=== PATIENT | female | born 1970 | race African-American/Black ===

== ENCOUNTER 2016-05-24 08:42 | Emergency (ER) | payer MEDICARE, MEDICAID ==
[2016-05-24 09:22] VITALS: BP 192/106
[2016-05-24] MEDS ORDERED: ceFAZolin 500 MG VIAL(*) 500 MG VIAL ONE (10:48)
[2016-05-24] MEDS: ceFAZolin 500 MG VIAL(*) 500 MG VIAL IM ONE (10:52)
[2016-05-24] MEDS ORDERED: ceFAZolin 1 GM VIAL(*) ONE (10:58)
--- NOTE | 2016-05-24 11:10 | UC ---
Stanley Guevara Aidan, scribed for Madhuri Rodriguez DO on 05/24/16 at 1033 . Skin Complaint HPI - HPI Summary HPI Summary: 45 y/o female presents to the Urgent Care with a complaint of acute, constant, severely painful (8/10) vaginal sores for the past 10 days. Movement and pressure aggravate the pain while Ibuprofen and Aleve slightly alleviate it. Over this past week, some of the sores have drained, refilled, and increased in size. She has not had drainage for the past 2 days, though currently, her gauze is filling up. Associates symptoms include some nausea, and chills. The patient denies any vomiting, coughing, sore throat, cp, or SOB. Hx of cystic breakouts during menstrual periods. The patient also mentions having a significant amount of stress, however, no SI/HI. - History of Current Complaint Chief Complaint: UCSkin Time Seen by Provider: 05/24/16 10:05 Stated Complaint: VAGINAL SORE Hx Obtained From: Patient Hx Last Menstrual Period: 05/05/16 ?: No Onset/Duration: Gradual Onset, Lasting Days, Still Present Skin Exposure Onset/Duration: Days Ago Timing: Constant Onset Severity: Moderate Current Severity: Moderate Pain Intensity: 7 Pain Scale Used: 0-10 Numeric Location: Other - mons pubis Character: Swelling, Pain, Redness Aggravating: Other - movement and applying pressure Alleviating: Heat, OTC Meds - Aleve and Ibuprofen Associated Signs & Symptoms: Positive: Nausea, Chills, Drainage, Tenderness. Negative: Negative - dizziness, Vomiting, Diaphoresis, Shivering, Difficulty Breathing, Fever, Cough, Chest Pain, Abdominal Pain Related History: Other: - Hx of cystic breakouts during periods - Allergy/Home Medications Allergies/Adverse Reactions: Allergies Allergy/AdvReac Type Severity Reaction Status Date / Time Aspirin Allergy Intermediate GI Upset Verified 05/24/16 09:11 Home Medications: Home Medications Insulin GLARGINE(*) [Lantus(*)] 05/24/16 [History] Lisinopril TAB* [Prinivil TAB*] 5 mg PO DAILY 05/24/16 [History Confirmed ] metFORMIN* [Glucophage*] 2,000 05/24/16 [History] Review of Systems Constitutional: Chills, Other - dizziness, nausea Skin: Other - vaginal sores Eyes: Negative ENT: Negative Respiratory: Negative Cardiovascular: Negative Gastrointestinal: Negative Genitourinary: Negative Motor: Negative Neurovascular: Negative Musculoskeletal: Negative Neurological: Negative Psychological: Negative All Other Systems Reviewed And Are Negative: Yes PMH/Surg Hx/FS Hx/Imm Hx - Additional Past Medical History Additional PMH: cystic acne Endocrine History Of: 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 Breast reduction - Family History Known Family History: Positive: Diabetes Negative: Cardiac Disease, Hypertension - Social History Occupation: Disabled Lives: Alone Alcohol Use: None Substance Use Type: None Smoking Status (MU): Never Smoked Tobacco Have You Smoked in the Last Year: No Physical Exam Triage Information Reviewed: Yes Appearance: Well-Appearing, Well-Nourished, Pain Distress - mod-severe Vital Signs: Initial Vital Signs Temp 98.2 F 05/24/16 09:12 Pulse 92 05/24/16 09:12 Resp 16 05/24/16 09:12 BP 192/106 05/24/16 09:12 Pulse Ox 98 05/24/16 09:12 Vital Signs Reviewed: Yes Eyes: Positive: Conjunctiva Clear. Negative: Discharge ENT: Positive: Hearing grossly normal. Negative: Muffled/hoarse voice Neck exam: Normal Neck: Positive: Supple Respiratory: Positive: Lungs clear, Normal breath sounds, No respiratory distress, No accessory muscle use Cardiovascular: Positive: RRR, No Murmur Musculoskeletal Exam: Normal Neurological: Positive: Alert, Muscle Tone Normal Psychological Exam: Normal Psychological: Positive: Age Appropriate Behavior, Other: - tearful but consolable Skin Exam: Normal, Other - warm, dry, normal color Skin: Positive: Other - Draining abscess 6cm left mons pubis, abscess was already open at the time of encounter, draining copious, purulent material, some induration still noted around the edges of the infected area. positive for redness, tenderness, calor. culture collected Re-Evaluation - Re-Evaluation First Eval Re-Evaluation Time: 10:55 - After drainage, the patient is feeling better. Change: Improved Course/Dx - Course Course Of Treatment: Because the patient's sores were already draining, I&D was not necessary. - Differential Diagnoses - Skin Complaint Differential Diagnoses: Abscess, Cellulitis, MRSA - Diagnoses Provider Diagnoses: abscess Discharge - Discharge Plan Condition: Stable Disposition: HOME Prescriptions: Cephalexin CAP* [Keflex CAP*] 500 mg PO BID #20 cap HYDROcodone/ACETAMIN 5-325 MG* [[place] 5-325 TAB*] 1 tab PO Q6H PRN #7 tab MDD 4 TABS PRN Reason: Pain Sulfamethox/Trimethoprim DS* [Bactrim DS 800/160 TAB*] 1 tab PO BID #20 tab Patient Education Materials: Abscess (ED) Referrals: Michael Lopez MD [Medical Doctor] - (Follow up in 2 days for re-evaluation. This follow up visit is important, we want to know that you are improving. If you can not get in with your PCP, return here for re-evaluation. Follow up sooner if symptoms worsen or if you develop fever, chills, spreading redness and pain.) Additional Instructions: ANTIBIOTIC THERAPY: You have been given an antibiotic prescription. It's important that you take all the medication, unless instructed otherwise by your physician. Failure to complete the entire course can result in relapse of your condition. Common side effects of antibiotics include nausea, intestinal cramping, or diarrhea. Women may develop vaginal yeast infections, and babies can get yeast (thrush) in the mouth following the use of antibiotics. Contact your physician if you develop significant side effects from this medication. Allergy to this antibiotic can result in hives, wheezing, faintness, or itching. If symptoms of allergy occur, stop the medication and call the doctor. ANY TIME YOU TAKE AN ANTIBIOTIC, IT IS IMPORTANT TO REPLENISH THE BODY'S BALANCE OF "GOOD" BACTERIA BY EATING HIGH QUALITY CULTURED FOOD SUCH YOGURT, SAURKRAUT OR MARCIA CHI AND/OR TAKING A PROBIOTIC SUPPLEMENT. ORAL NARCOTIC MEDICATION: You have been given a prescription for pain control. This medication is a narcotic. It's best taken with food, as nausea can result if taken on an empty stomach. Don't operate machinery or drive within six hours of taking this medication. Do not combine this medicine with alcohol, or with any medication which can cause sedation (such as cold tablets or sleeping pills) unless you get permission from the physician. Narcotics tend to cause constipation. If possible, drink plenty of fluids and eat a diet high in fiber and fruits. Follow up in 2 days for re-evaluation. This follow up visit is important, we want to know that you are improving. If you can not get in with your PCP, return here for re-evaluation. Follow up sooner if symptoms worsen or if you develop fever, chills, spreading redness and pain. The documentation as recorded by the Stanley soria Aidan accurately reflects the service I personally performed and the decisions made by me, Madhuri Rodriguez DO.
== END 2016-05-24 11:10 | disposition home or self-care (01) ==
LOC: UCEAST 08:42
DX: N76.0 Acute vaginitis (principal); I10 Essential (primary) hypertension; E10.9 Type 1 diabetes mellitus without complications; Z79.4 Long term (current) use of insulin; Z88.6 Allergy status to analgesic agent
CPT/HCPCS: 87070; 87077; 87186; 87205; 87640; 87641; 96372; 99212; G0463; J0690

== ENCOUNTER 2016-08-31 09:46 | Emergency (ER) | payer MEDICARE, MEDICAID ==
[2016-08-31 11:47] VITALS: BP 158/94
[2016-08-31] MEDS ORDERED: Ketorolac INJ* 30 MG/ML 1 ML VIAL IM ONE (12:19)
[2016-08-31] MEDS ORDERED: HYDROcodone/ACETAMIN 5-325 MG* 1 TAB PO ONE (12:22)
--- NOTE | 2016-08-31 12:25 | UC ---
Skin Complaint HPI - HPI Summary HPI Summary: Painful lump draining yellow and bloody fluid from R buttock starting about 7 days ago. Has gotten incredibly painful, unable to manage symptoms. Has DM mixed type and has not been controlling sugars lately. Reports "barely ate all week" yet fasting sugar this morning was over 400. Has been having sweats and chills. Hx of small abscesses/cysts in the past, but none this big. - History of Current Complaint Chief Complaint: UCWounds Time Seen by Provider: 08/31/16 12:03 Stated Complaint: ABSCESS-RT SIDE OF BUTTOCKS Hx Obtained From: Patient Hx Last Menstrual Period: 08/24/16 ?: No Onset/Duration: Gradual Onset, Lasting Weeks Skin Exposure Onset/Duration: Days Ago Timing: Constant Onset Severity: Mild Current Severity: Severe Location: Discrete Character: Pain, Redness Aggravating: Touch Alleviating: Nothing Associated Signs & Symptoms: Positive: Shivering, Fever, Chills Related History: Diabetes - Allergy/Home Medications Allergies/Adverse Reactions: Allergies Allergy/AdvReac Type Severity Reaction Status Date / Time Aspirin AdvReac Intermediate GI Upset Verified 08/31/16 11:26 Review of Systems Constitutional: Fever, Chills, Fatigue Skin: Other - red painful draining lump Eyes: Negative ENT: Negative Respiratory: Negative Cardiovascular: Negative Gastrointestinal: Negative Genitourinary: Negative Motor: Negative Neurovascular: Negative Musculoskeletal: Negative Neurological: Negative Psychological: Negative All Other Systems Reviewed And Are Negative: Yes PMH/Surg Hx/FS Hx/Imm Hx Endocrine History Of: 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 Breast reduction - Family History Known Family History: Positive: Diabetes Negative: Cardiac Disease, Hypertension - Social History Lives: With Family Alcohol Use: None Substance Use Type: None Smoking Status (MU): Never Smoked Tobacco Have You Smoked in the Last Year: No - Immunization History Most Recent Tetanus Shot: Pt states unsure Physical Exam Triage Information Reviewed: Yes Appearance: Well-Nourished, Pain Distress - unable to sit, weeping Vital Signs: Initial Vital Signs Temp 98.6 F 08/31/16 11:31 Pulse 104 08/31/16 11:31 Resp 20 08/31/16 11:31 BP 158/94 08/31/16 11:31 Pulse Ox 98 08/31/16 11:31 Vital Signs Reviewed: Yes Eye Exam: Normal Eyes: Positive: Conjunctiva Clear ENT Exam: Normal ENT: Positive: Normal ENT inspection, Hearing grossly normal, Pharynx normal, TMs normal Dental Exam: Normal Neck exam: Normal Neck: Positive: Supple, Nontender, No Lymphadenopathy Respiratory Exam: Normal Respiratory: Positive: Chest non-tender, Lungs clear, Normal breath sounds, No respiratory distress, No accessory muscle use Cardiovascular: Positive: No Murmur, Tachycardia Musculoskeletal Exam: Normal Musculoskeletal: Positive: ROM Intact Neurological Exam: Normal Neurological: Positive: Alert Psychological Exam: Other - crying from pain Psychological: Positive: Normal Response To Family Skin Exam: Other - R lower buttock large area of erythema with draining abscess the size of a softball Course/Dx - Diagnoses Provider Diagnoses: R buttock abscess. uncontrolled DM - Physician Notification/Consults Discussed Patient Care With: Aleksandar JACKSON Time Discussed With Above Provider: 12:19 Instructed by Provider To: Will See In ED Discharge - Discharge Plan Condition: Stable Disposition: AGAINST MEDICAL ADVICE
== END 2016-08-31 12:33 | disposition left against medical advice (07) ==
LOC: UCEAST 09:46
DX: L02.31 Cutaneous abscess of buttock (principal); E11.9 Type 2 diabetes mellitus without complications; I10 Essential (primary) hypertension; Z88.6 Allergy status to analgesic agent
CPT/HCPCS: 96372; 99212; G0463; J1885

== ENCOUNTER 2016-08-31 12:54 | Inpatient (IN) | payer MEDICAID, MEDICARE ==
[2016-08-31] MEDS ORDERED: NS 0.9% 1000 ML* 1,000 ML IV ONE ×3 (15:40→18:34)
[2016-08-31] MEDS ORDERED: Insulin REGULAR(*) 1 UNITS UNIT IV PUSH ONE (15:40)
[2016-08-31 16:43] LABS: Add Diff/Slide Review? Slide Review Added; Comments Flag Yes; Hematocrit 37 % (35-47); Hemoglobin 11.7 g/dl (12.0-16.0); Mean Corpuscular HGB Conc 32 g/dl (31-36); Mean Corpuscular Hemoglobin 27 pg (27-31); Mean Corpuscular Volume 86 fL (80-97); Mean Platelet Volume 8 um3 (7.4-10.4); Red Blood Count 4.29 10^6/ul (4.0-5.4); Red Cell Distribution Width 13 % (10.5-15); White Blood Count 12.9 10^3/ul (3.5-10.8)
[2016-08-31] MEDS ORDERED: Iodixanol* (CONTRAST) 320 MG/ML 100 ML SDV IV ONE (17:02)
[2016-08-31 17:11] LABS: Albumin 3.3 g/dL (3.2-5.2); BUN/Creatinine Ratio 17.3 (8-20); C Reactive Protein 110.27 mg/L (< 5.00); Calcium 9.2 mg/dL (8.6-10.3); EGFR African American 107.5 (>60); EGFR Non-African American 83.6 (>60); Globulin 4.3 g/dL (2-4); Potassium 4.4 mmol/L (3.5-5.0); Total Bilirubin 0.3 mg/dL (0.2-1.0); Total Protein 7.6 g/dL (6.4-8.9)
[2016-08-31 17:13] LABS: Venous Bicarbonate HCO3 18.6 mmol/L (24-28)
--- NOTE | 2016-08-31 17:17 | ED ---
Skin Complaint - HPI Summary HPI Summary: Patient is a diabetic who presents with an abscess on her buttock that began approximately 6 days ago. She has a history of these developing around her menstrual cycle and tried to manage it as she had managed previous bumps. Because of the location she was not able to visualize the area so it became worse without her really appreciating it. She was performing warm compresses and the area began to drain so she again, thought it would improve. She had a fever four nights ago for a few days that resolved, and then became generally ill feeling. Her appetite has decreased but she is consuming fluids. - History of Current Complaint Chief Complaint: EDGeneral Time Seen by Provider: 08/31/16 15:00 Stated Complaint: ABSCESS Hx Obtained From: Patient Hx Last Menstrual Period: 08/24/16 Onset/Duration: Started Days Ago, Atraumatic, Worse Since - last week Timing: Constant Onset Severity: Moderate Current Severity: Severe Pain Intensity: 7 Skin Location: Other: - right buttock Character: Swelling, Pain, Redness Aggravating Symptom(s): Other: - everything Alleviating Symptom(s): Nothing Associated Signs & Symptoms: Drainage, Tenderness - Allergy/Home Medications Allergies/Adverse Reactions: Allergies Allergy/AdvReac Type Severity Reaction Status Date / Time Aspirin AdvReac Intermediate GI Upset Verified 08/31/16 11:26 PMH/Surg Hx/FS Hx/Imm Hx Endocrine/Hematology History: Reports: Hx Diabetes - type 1.5 Cardiovascular History: Reports: Hx Hypertension Psychiatric History: Reports: Hx Depression - Cancer History Hx Chemotherapy: No Hx Radiation Therapy: No - Surgical History Surgery Procedure, Year, and Place: . Breast reduction Infectious Disease History: No Infectious Disease History: Denies: History Other Infectious Disease - Pt states frequent abscesses, Traveled Outside the [place] in Last 30 Days - Family History Known Family History: Positive: Diabetes Negative: Cardiac Disease, Hypertension - Social History Occupation: Employed Part-time Lives: With Family Alcohol Use: None Substance Use Type: Reports: None Smoking Status (MU): Never Smoked Tobacco Have You Smoked in the Last Year: No Review of Systems Positive: Fever - resolved, Chills, Fatigue Negative: Abdominal Pain Positive: no symptoms reported Positive: Other - abscess right buttock All Other Systems Reviewed And Are Negative: Yes Physical Exam Triage Information Reviewed: Yes Vital Signs On Initial Exam: Initial Vitals Temp Pulse Resp BP Pulse Ox 98.8 F 123 20 178/90 96 08/31/16 13:06 08/31/16 13:06 08/31/16 13:06 08/31/16 13:06 08/31/16 13:06 Vital Signs Reviewed: Yes Appearance: Positive: Well-Nourished, Ill-Appearing, Pain Distress Skin: Positive: Warm, Skin Color Reflects Adequate Perfusion, Dry, Tender, Soft , Weeping Skin/Lesions - quarter size area of necrosis with purulent drainage and surrounding erythema and induration, Erythema @ Head/Face: Positive: Normal Head/Face Inspection Eyes: Positive: EOMI, CATALINO, Conjunctiva Clear ENT: Positive: Hearing grossly normal Neck: Positive: Supple, Nontender, No Lymphadenopathy Respiratory/Lung Sounds: Positive: Clear to Auscultation, Breath Sounds Present Cardiovascular: Positive: Tachycardia Abdomen Description: Positive: Nontender, Soft Bowel Sounds: Positive: Present Musculoskeletal: Positive: Edema Right - right buttock Neurological: Positive: Sensory/Motor Intact, Alert, Oriented to Person Place, Time, NV Bundle Intact Distally, Abnormal Gait Psychiatric: Positive: Affect/Mood Appropriate AVPU Assessment: Alert - [place] Coma Scale Coma Scale Total: 15 Procedures - Incision and Drainage Site: right buttock by Dr. Hilton with general surgery Anesthesia: Local, Lidocaine - 2% Instrument(s): Needle Packing: Gauze - 1/2 inch packing Diagnostics - Vital Signs Vital Signs Temp Pulse Resp BP Pulse Ox 08/31/16 14:56 98.0 F 117 16 188/111 100 08/31/16 13:08 98.4 F 125 20 178/90 100 08/31/16 13:06 98.8 F 123 20 178/90 96 - Laboratory Lab Results: Lab Results 08/31/16 08/31/16 Range/Units 16:18 16:18 WBC 12.9 H (3.5-10.8) 10^3/ul RBC 4.29 (4.0-5.4) 10^6/ul Hgb 11.7 L (12.0-16.0) g/dl Hct 37 (35-47) % MCV 86 (80-97) fL MCH 27 (27-31) pg MCHC 32 (31-36) g/dl RDW 13 (10.5-15) % Plt Count 337 (150-450) 10^3/ul MPV 8 (7.4-10.4) um3 Neut % (Auto) 73.5 (38-83) % Lymph % (Auto) 13.7 L (25-47) % [place] % (Auto) 11.3 H (1-9) % Eos % (Auto) 0.9 (0-6) % Baso % (Auto) 0.6 (0-2) % Absolute Neuts (auto) 9.5 H (1.5-7.7) 10^3/ul Absolute Lymphs (auto) 1.8 (1.0-4.8) 10^3/ul Absolute Monos (auto) 1.5 H (0-0.8) 10^3/ul Absolute Eos (auto) 0.1 (0-0.6) 10^3/ul Absolute Basos (auto) 0.1 (0-0.2) 10^3/ul Absolute Nucleated RBC 0 10^3/ul Nucleated RBC % 0 Sodium 128 L (133-145) mmol/L Potassium 4.4 (3.5-5.0) mmol/L Chloride 94 L (101-111) mmol/L Carbon Dioxide 19 L (22-32) mmol/L Anion Gap 15 H (2-11) mmol/L BUN 13 (6-24) mg/dL Creatinine 0.75 (0.51-0.95) mg/dL Est GFR ( Amer) 107.5 (>60) Est GFR (Non-Af Amer) 83.6 (>60) BUN/Creatinine Ratio 17.3 (8-20) Glucose 392 H (70-100) mg/dL Calcium 9.2 (8.6-10.3) mg/dL Total Bilirubin 0.30 (0.2-1.0) mg/dL AST 10 L (13-39) U/L ALT 7 (7-52) U/L Alkaline Phosphatase 111 H (34-104) U/L C-Reactive Protein 110.27 H (< 5.00) mg/L Total Protein 7.6 (6.4-8.9) g/dL Albumin 3.3 (3.2-5.2) g/dL Globulin 4.3 H (2-4) g/dL Albumin/Globulin Ratio 0.8 L (1-3) Result Diagrams: 08/31/16 16:18 05/08/17 16:18 Lab Statement: Any lab studies that have been ordered have been reviewed, and results considered in the medical decision making process. Course/Dx - Differential Diagnoses - Skin Complaint Differential Diagnoses: Abscess, Cellulitis, Diabetes, Local Allergic Reaction, MRSA, Urticaria - Diagnoses Provider Diagnoses: Marah-rectal abscess - Physician Notifications Discussed Care Of Patient With: Dr. Bales, ED attending; Dr. Hilton, general surgery. Discharge - Discharge Plan Condition: Stable Disposition: [facility] Referrals: Michael Lopez MD [Primary Care Provider] -
[2016-08-31] MEDS ORDERED: Ondansetron INJ* 2 MG/ML VIAL ONE (17:25)
[2016-08-31] MEDS ORDERED: Morphine INJ* 4 MG/ML 1 ML SYRINGE ONE (17:25)
[2016-08-31] MEDS ORDERED: Insulin REGULAR(*) 1 UNITS UNIT SUBCUT ONE (17:40)
[2016-08-31] MEDS ORDERED: Morphine INJ* 4 MG/ML 1 ML SYRINGE IV ONE (17:48)
[2016-08-31] MEDS ORDERED: Clindamycin 900 MG IVPREMIX(* 900 MG/50 ML SDV IV ONE (17:48)
[2016-08-31] MEDS ORDERED: Ondansetron INJ* 2 MG/ML VIAL IV ONE (17:49)
[2016-08-31] MEDS ORDERED: Ciprofloxacin 400MG IVPREMIX(* 400 MG/200 ML BAG IVPB SCH (18:00)
[2016-08-31] MEDS ORDERED: metroNIDAZOLE IV 500 MG/100ML* 500 MG/100 ML BAG IVPB SCH ×2 (18:00→20:00)
[2016-08-31] MEDS ORDERED: Ondansetron INJ* 2 MG/ML VIAL IV PRN (18:35)
--- NOTE | 2016-08-31 18:37 | RAD ---
Indication: Perirectal abscess. Diabetic. Comparison: No relevant prior exams available on the [facility]. Technique: CT pelvis with 100 mL Visipaque 320 IV contrast. Report: No CT abnormality of the visualized bowel loops. Negative for ascites, free intraperitoneal air, or significant hernias within the [id number]. There is dermal thickening and infiltrative increased density and subcutaneous emphysema in the RIGHT gluteal subcutaneous tissue plane and ischioanal fossa extending to the level of the peripheral margin of the external anal sphincter. No loculated abscess collection evident. Moderately distended urinary bladder without suspicious finding. Unremarkable visualized ureters. Anteverted uterus with pedunculated calcified 3.1 cm maximum dimension fundal fibroid. Unremarkable adnexal regions. Top normal 1.4 cm short axis RIGHT inguinal lymph node. No suspicious osseous lesions evident. IMPRESSION: The constellation of findings is consistent with cellulitis at the RIGHT gluteal subcutaneous tissue plane and ischioanal fossa extending to the level of the peripheral margin of the external anal sphincter. No loculated abscess collection evident.
[2016-08-31] MEDS ORDERED: Dextrose 50% Syringe 50 ML* 25 GM/50 ML SYRINGE IV PUSH PRN (18:41)
[2016-08-31] MEDS: oxyCODONE/Acetamin 5/325 MG* TAB PO PRN (19:48)
[2016-08-31] MEDS ORDERED: Piperac/Tazob 3.375 gm in NS* 3.375 GM/100 ML BAG IVPB ONE (22:00)
[2016-08-31] MEDS: NS 0.9% 1000 ML* 1,000 ML IV SCH (22:12)
[2016-08-31] MEDS: Morphine INJ* 2 MG/ML 1 ML SYRINGE IV PRN (22:13)
[2016-08-31] MEDS: Enoxaparin(*) 40 MG/0.4 ML SYR SUBCUT SCH (22:18)
[2016-08-31] MEDS: Insulin GLARGINE(*) 1 UNITS UNIT SUBCUT SCH (22:22)
[2016-08-31] MEDS: Insulin LISPRO* 1 UNITS UNIT SUBCUT SCH (22:23)
[2016-08-31] MEDS: Lisinopril TAB* 10 MG PO SCH (22:24)
--- NOTE | 2016-08-31 22:34 | CONS ---
CONSULTATION REPORT: DATE OF CONSULT: 08/31/16 REASON FOR CONSULTATION: Right buttock abscess. HISTORY OF PRESENT ILLNESS: Ms. Barby Asencio is a 46-year-old woman who is an insulin-dependent diabetic who has had problems with subcutaneous abscess over the years, who on the medial midportion of the right buttock several centimeters off the anus under the butt cheek has developed some redness, swelling, and discomfort over the past weekend. On Wednesday, this spontaneously drained some foul-smelling fluid. She has been at home all weekend and has been eating poorly and was noted to have elevated blood sugars up into the 400s on presentation, noted to be slightly tachycardic. In the emergency room, she was noted to have a partially spontaneously draining abscess on the right buttock and surgical consultation was obtained. She said she has had some shakes and chills, but no fevers as far as she knows. She has been urinating without difficulty. She has had several bowel movements that do not cause undue discomfort, although she is not eating much and says that they have been quite small. She has had no blood per rectum. PAST MEDICAL HISTORY: 1. Diabetes. 2. Hypertension. PAST SURGICAL HISTORY: 1. section. 2. Breast reduction. MEDICATIONS: Include: 1. Metformin. 2. Lisinopril. 3. Lantus insulin. ALLERGIES: She is allergic to ASPIRIN. SOCIAL HISTORY: She has children aged 8 and 10. She lives with the family. Does not use alcohol. Has never smoked tobacco. PHYSICAL EXAMINATION: She is an overweight female, normal attention to grooming. She is awake, alert, and conversive. Quite pleasant, although obvious discomfort when moving. Her lungs with diminished breath sounds throughout. Heart has regular rate and rhythm without murmurs, rubs, or gallops. Her abdomen is soft, nondistended. There is no tenderness. MANAGER ACCESS: The external labia and genitalia really show no evidence of redness, swelling, or abscess, although there is a slight amount of induration in the left inferior labia majora without evidence of abscess or undue tenderness. When lying in the left lateral decubitus position, along the right buttock cheek fairly medially towards the anus is an area of spontaneous necrotic skin with spontaneous foul-smelling purulent material. There is induration and slight cellulitis surrounding this at about 10 x 10 cm. There does not appear to be any anal skin involvement. There is no obvious midline involvement. There is no tenderness on the left buttock cheek or perianal area. IMPRESSION: Right buttock abscess. This may well be an ischiorectal abscess, although it is difficult to determine. This may well just be more related to pressure. RECOMMENDATION: Recommendation is to proceed with incision and drainage and debridement of some of the necrotic tissue here in the emergency room. I discussed this with her and the risks include but not limited to bleeding, infection, recurrence, possible further operative intervention depending on the clinical course over the next several days. She will require admission to the hospitalist service with blood sugar control with starting of IV antibiotics and aggressive wound care which will be taken care of by the surgical service. She understands all the above and gives her consent to proceed. CC: [facility] [id number]/[facility] #: [id number] GIL
[2016-08-31 22:45] LABS: BUN/Creatinine Ratio 15.9 (8-20); Calcium 8.3 mg/dL (8.6-10.3); EGFR African American 118.3 (>60); Potassium 4.6 mmol/L (3.5-5.0)
--- NOTE | 2016-08-31 23:09 | HP ---
HISTORY AND PHYSICAL: DATE OF ADMISSION: 08/31/16 PRIMARY CARE PHYSICIAN: Tyler Lopez MD CHIEF COMPLAINT: Perirectal abscess/perianal abscess. HISTORY OF PRESENT ILLNESS: Ms. Asencio is a 46-year-old female with a past medical history of hypertension, diabetes, depression, anxiety, and ADHD who presents to the hospital with a perianal abscess. The patient states she first noticed an irritation on Wednesday in the anal area. She states she usually gets small cyst and abscess like this around the time of her period and has needed drainage in the past. She has felt that her symptoms had been worse over the past few months from the time of her period. The following day on Wednesday, the pain was a bit worse and she felt like she had a little more difficulty walking. Over the following days, the pain progressed and it made difficult to sit. She was having some fever and chills at night and felt very fatigued. She was staying in bed most days. On Wednesday, the abscess began to drain and she thought that it maybe improving; however, the pain increased and the area became even larger. Last night, she got a hand mirror and finally looked at it and "freaked out" as she said it taken over the entire right side of her buttocks. She had been trying to take ibuprofen, but this was not helping much. She went to Urgent Care today and was referred here to the hospital. She admits that she has not been taking care of herself lately. She said she has had a very difficult winter and has been dealing with depression. She is not taking any of her medications for months now including her Lantus, metformin , and lisinopril. She has not been checking her blood sugars either, but decided to check yesterday and it was elevated to 415. She reports some associated nausea and decreased food intake, although she states she has been having a lot of fluids. She has some shortness of breath with exertion, but just feels like this is from overall fatigue. She says she has had one of these abscesses on her face in January that was drained at Urgent Care and another in her groin that was drained in April. In the emergency department here, Surgery was consulted and Dr. Hilton saw the patient and performed an I and D at the bedside. PAST MEDICAL HISTORY: 1. Hypertension. 2. Diabetes. 3. Depression. 4. Anxiety. 5. ADHD. PAST SURGICAL HISTORY: 1. . 2. Breast reduction surgery. 3. Scar tissue repair. HOME MEDICATIONS: 1. Prozac 40 mg daily. 2. Concerta 27 mg by mouth daily. 3. Multivitamin 1 tablet by mouth daily. 4. Metformin 2000 mg by mouth daily. 5. Lisinopril 20 mg by mouth daily. 6. Lantus 45 to 60 units subcutaneous at bedtime. 7. Vitamin D 5000 units daily. Please note, per the HPI, the patient has not taken any of these medications for months. ALLERGIES: She reports ASPIRIN gives her an upset stomach. FAMILY HISTORY: Significant for father with CAD and diabetes, mother with diabetes, and maternal grandfather with CAD. SOCIAL HISTORY: The patient has 3 kids. Denies any tobacco abuse, alcohol use , or illicit drug use. REVIEW OF SYSTEMS: A 12-point review of systems is negative except for that as noted in the HPI. PHYSICAL EXAMINATION GENERAL: The patient is a middle-aged female, lying in bed, in no apparent distress. VITAL SIGNS: On admission, temperature 98.8, heart rate of 123, respiratory rate of 20, O2 saturation 96% on room air, and blood pressure of 178/90. HEENT: Pupils equal, round, reactive to light and accommodation. Anicteric sclerae. Dry mucous membranes. NECK: No cervical adenopathy. LUNGS: Clear to auscultation bilaterally. No wheezes, rales, or rhonchi. CARDIOVASCULAR: Tachycardia. No murmurs, gallops, or rubs. ABDOMEN: Soft, nontender, and nondistended. Bowel sounds positive. EXTREMITIES: No cyanosis, clubbing, or edema. SKIN: The patient has a dressing over the right perianal area. I did not undress; however, she has a clear erythematous and indurated area that is tender extending from the dressing laterally towards the middle of the buttocks. DIAGNOSTIC STUDIES/LAB DATA: White blood cell count 12.9, hemoglobin 11.7, hematocrit of 37, and platelets of 337. VBG; pH 7.3, pCO2 39, pO2 30, and bicarb 18.6. Initial glucose of 417. Sodium 128, potassium 4.4, chloride 94, carbon dioxide 19, anion gap 15, BUN of 13, creatinine 0.75, and glucose 392. AST of 10, ALT of 7, and alk phos 111. CRP of 110. Pelvic CT is done with no read yet. ASSESSMENT AND PLAN: Perirectal abscess, status post I and D and mild diabetic ketoacidosis in a 46-year-old female with a past medical history of hypertension , diabetes, depression/anxiety, attention deficit hyperactivity disorder, and recurrent abscesses. 1. Perirectal abscess: Please see surgery assistance. Dr. Hilton performed an I and D at the bedside and sent for a would culture. Initially received Cipro/Flagyl but changed to Zosyn. We will resuscitate with IV fluids and we will repeat a CBC in the morning. 2. Diabetic ketoacidosis: The patient has a small anion gap metabolic acidosis. I do not think she needs an insulin drip at this point. She has received 2 L of IV fluid bolus in the emergency department. I will order another 1 L bolus and start normal saline at 125 cc an hour. She has received both IV and subcu insulin for a total of 20 units in the emergency department. Last blood glucose was 303. We will give the patient 30 units of Lantus now and start her on a sliding scale. We will recheck BMP this evening and again tomorrow morning. We will add on hemoglobin A1c. 3. Hypertension: BPs are elevated in the emergency department. We will start the patient's home lisinopril tonight 20 mg daily. 4. Depression: We will resume her home Prozac 40 mg by mouth daily. 5. DVT prophylaxis: Lovenox subcu. 6. Code status: The patient is a full code. TIME SPENT: Total time spent on this admission, 45 minutes with over half the time spent nbil-so-dfxy with the patient in counseling and coordinating care. CC: Tyler Lopez MD * [id number]/[facility] #: [id number] GIL
[2016-09-01] MEDS: Piperac/Tazob 3.375 gm in NS* 3.375 GM/100 ML BAG IVPB SCH ×3 (03:17→17:33)
[2016-09-01] MEDS: Insulin LISPRO* 1 UNITS UNIT SUBCUT SCH ×4 (03:41→17:33)
[2016-09-01 05:22] LABS: Hematocrit 31 % (35-47); Mean Corpuscular HGB Conc 33 g/dl (31-36); Mean Corpuscular Hemoglobin 28 pg (27-31); Mean Corpuscular Volume 85 fL (80-97); Mean Platelet Volume 7 um3 (7.4-10.4); Red Blood Count 3.57 10^6/ul (4.0-5.4); Red Cell Distribution Width 13 % (10.5-15); White Blood Count 9.1 10^3/ul (3.5-10.8)
[2016-09-01 05:36] LABS: BUN/Creatinine Ratio 15.9 (8-20); Calcium 7.8 mg/dL (8.6-10.3); EGFR African American 131.4 (>60); EGFR Non-African American 102.2 (>60); Potassium 3.4 mmol/L (3.5-5.0)
[2016-09-01] MEDS: NS 0.9% 1000 ML* 1,000 ML IV SCH ×3 (06:18→15:27)
[2016-09-01] MEDS: oxyCODONE/Acetamin 5/325 MG* TAB PO PRN ×3 (07:42→21:14)
--- NOTE | 2016-09-01 08:29 | OP ---
DATE OF OPERATION: 08/31/16 - ROOM #413 DATE OF : 72 SURGEON: Raymundo Hilton MD ANESTHESIA: 6 mg of IV morphine given by the emergency room PA. PRE-OP DIAGNOSIS: Right buttock abscess. POST-OP DIAGNOSIS: Right buttock abscess. OPERATIVE PROCEDURE: Incision and drainage of right buttock abscess. ESTIMATED BLOOD LOSS: Minimal. SPECIMENS: Culture swabs for Gram stain and culture. DRAINS: One-half inch Nu Gauze plain packing. COMPLICATIONS: None. WOUND CLASSIFICATION: IV. BRIEF HISTORY: Please see separate dictated consultation report. DESCRIPTION OF PROCEDURE: Written informed consent was obtained, the right buttock was marked with indelible ink, and complete time-out verification was completed. A written informed consent had been obtained. The patient was placed in the left lateral decubitus position with the knees drawn up towards the chest. The right buttock and perianal area were prepped and draped in the usual sterile fashion. A 1% lidocaine with epinephrine was extensively infiltrated in the area. The abscess, which had been spontaneously draining through 2 separate areas, what appeared to be gangrenous skin. This was excised sharply and there was bridge of skin, which was dark in color, which also was excised. Behind this was several extending cavities, somewhat one more anteriorly and any loculation were digitally broken up and pus was drained. This did not track anteroposteriorly towards the midline to suggest 2 perirectal abscess. Once the loculations had been broken up and I was confident that I was not missing deeper extension, after digital probing, the wound was packed with half- inch plain Nu Gauze covered with dry gauze and subsequently an ABD pad. Surgical underwear were then placed. The patient tolerated the procedure well. [id number]/[facility] #: [id number] MTDD
[2016-09-01] MEDS: Morphine INJ* 2 MG/ML 1 ML SYRINGE IV PRN ×2 (08:49→12:09)
[2016-09-01] MEDS ORDERED: FLUoxetine CAP* 20 MG PO SCH (09:00)
--- NOTE | 2016-09-01 10:37 | PN ---
Subjective Date of Service: 09/01/16 Interval History: Patient seen this morning. Says she is feeling better overall, "anything is better than yesterday". No fever or chills. Appetite is coming back a bit, had some breakfast this AM. Pleased that BGs are better controlled. Family History: Unchanged from Admission Social History: Unchanged from Admission Past Medical History: Unchanged from Admission Objective Active Medications: Dextrose (D50w Syringe 50 Ml*) 12.5 gm IV PUSH .FOR FS < 60 - SS PRN Enoxaparin Sodium (Lovenox(*)) 40 mg SUBCUT Q24H ENMANUEL Fluoxetine HCl (Prozac Cap*) 40 mg PO DAILY ENMANUEL Sodium Chloride (Ns 0.9% 1000 Ml*) 1,000 mls @ 125 mls/hr IV PER RATE ENMANUEL Piperacillin Sod/Tazobactam Sod (Zosyn 3.375 Gm In Ns Premix*) 3.375 gm in 100 mls @ 25 mls/hr IVPB Q8H ENMANUEL Insulin Glargine (Lantus(*)) 30 units SUBCUT Q24H ENMANUEL Insulin Human Lispro (Humalog*) 0 - 15 units SUBCUT AC ENMANUEL Lisinopril (Prinivil Tab*) 20 mg PO DAILY ENMANUEL Morphine Sulfate (Morphine Inj (Syringe)*) 2 mg IV Q4H PRN Ondansetron HCl (Zofran Inj*) 4 mg IV Q4H PRN Oxycodone/Acetaminophen (Percocet 5/325 Tab*) 1 tab PO Q4H PRN Vital Signs 08/31/16 08/31/16 08/31/16 17:54 18:28 19:03 Temperature 98.6 F Pulse Rate 104 105 98 Respiratory 20 18 18 Rate Blood Pressure 168/108 158/83 138/91 (mmHg) O2 Sat by Pulse 97 97 Oximetry 08/31/16 09/01/16 09/01/16 23:33 03:16 07:22 Temperature 97.7 F 97.6 F 98.2 F Pulse Rate 89 87 92 Respiratory 14 14 18 Rate Blood Pressure 128/71 122/68 129/70 (mmHg) O2 Sat by Pulse 93 96 97 Oximetry Oxygen Devices in Use Now: None Appearance: Middle-aged, AAF, laying in bed in NAD Eyes: No Scleral Icterus Ears/Nose/Mouth/Throat: Mucous Membranes Moist Neck: NL Appearance and Movements; NL JVP Respiratory: Symmetrical Chest Expansion and Respiratory Effort, Clear to Auscultation Cardiovascular: NL Sounds; No Murmurs; No JVD, - - mild tachycardia Abdominal: NL Sounds; No Tenderness; No Distention Lymphatic: No Cervical Adenopathy Extremities: No Edema Skin: - - Incision site on R buttocks with some bloody/purulent drainage, wound appears clean, surrounding induration is tended, erythema seems to be improved Neurological: Alert and Oriented x 3 Result Diagrams: 09/01/16 05:12 09/01/16 05:12 Assess/Plan/Problems-Billing Assessment: Buttocks abscess, mild DKA in a 46 yo F with hx of HTN, DM, depression, anxiety , ADHD and recurrent abscesses - Patient Problems (1) Abscess of buttock, right Current Visit: Yes Comment: Apprecaite surgery assistance, s/p I&D on 08/31. Continue to have drainage. Continue Zosyn for now. GPC (S. aureus positive, MRSA negative) and GPB on culture, follow for speciation. Continue IVF. (2) DKA (diabetic ketoacidoses) Current Visit: Yes Comment: Resolved. Continue Lantus 30 units qhs with HISS. HbA1c is 14.7%, needs to be compliant with outpatient treatment. (3) HTN (hypertension) Current Visit: Yes Comment: Continue home Lisinopril (4) Depression Current Visit: Yes Comment: Patient does not want to start Fluoxetine again. (5) DVT prophylaxis Current Visit: Yes Comment: Lovenox SQ
--- NOTE | 2016-09-01 13:00 | SURGPN ---
Subjective - Introduction -: Reports doing better overall. Pain is less, some drainage from I&D site requiring dressing changes. No fever or chills. - Medications -: Active Medications Generic Name Dose Route Start Last Admin Trade Name Freq PRN Reason Stop Dose Admin Dextrose 12.5 gm 08/31/16 18:41 D50w Syringe 50 Ml* IV PUSH .FOR FS < 60 - SS PRN FS < 60 Enoxaparin Sodium 40 mg 08/31/16 19:00 08/31/16 22:18 Lovenox(*) SUBCUT 40 mg Q24H ENMANUEL Administration Sodium Chloride 1,000 mls @ 125 mls/hr 08/31/16 18:45 09/01/16 06:18 Ns 0.9% 1000 Ml* IV 125 mls/hr PER RATE ENMANUEL Administration Piperacillin Sod/Tazobactam Sod 3.375 gm in 100 mls @ 25 mls/hr 09/01/16 02: 00 09/01/16 10:27 Zosyn 3.375 Gm In Ns Premix* IVPB 25 mls/hr Q8H ENMANUEL Administration Insulin Glargine 30 units 08/31/16 19:00 08/31/16 22:22 Lantus(*) SUBCUT 30 units Q24H ENMANUEL Administration Insulin Human Lispro 0 - 15 units 08/31/16 19:00 09/01/16 08:48 Humalog* SUBCUT 3 units AC ENMANUEL Administration Protocol Lisinopril 20 mg 08/31/16 19:00 08/31/16 22:24 Prinivil Tab* PO 20 mg DAILY ENMANUEL Administration Morphine Sulfate 2 mg 08/31/16 18:35 09/01/16 12:09 Morphine Inj (Syringe)* IV 2 mg Q4H PRN Administration PAIN Ondansetron HCl 4 mg 08/31/16 18:35 Zofran Inj* IV Q4H PRN NAUSEA/VOMITING Oxycodone/Acetaminophen 1 tab 08/31/16 18:35 09/01/16 07:42 Percocet 5/325 Tab* PO 1 tab Q4H PRN Administration Pain Objective - Objective -: Awake and alert, comfortable in bed, in NAD. - Intake and Output -: I/O noted Surgical Physical Exam - Comments -: VSS, afebrile R buttock with moderate induration surrounding I&D site. No erythema, bleeding or discharge noted. Moderate tenderness on palpation. Patient was pre-medicated with 2mg Morphine IV, then packing from R buttock wound was removed. New plain 1/2 inch packing gauze was inserted. Dressing changed, patient expressed some pain, but overall tolerated procedure well. Assessment and Plan - Assessment -: A 46 y/o female, with R alissa-rectal/buttock abscess, s/p I&D, doing better. - Plan Additional Comments: Will continue dressing changes on a daily basis. Labs reviewed, WBCs trending down. Cultures show S. aureus, negative for MRSA Continue IV Abx and glycemic control per medicine. Might need additional I&D with debridement in OR under sedation if no significant improvement in 2 days or so.
[2016-09-01] MEDS: Lisinopril TAB* 10 MG PO SCH ×2 (13:56→21:15)
[2016-09-01] MEDS ORDERED: Insulin GLARGINE(*) 1 UNITS UNIT SUBCUT SCH (19:28)
[2016-09-01] MEDS: Enoxaparin(*) 40 MG/0.4 ML SYR SUBCUT SCH (21:17)
[2016-09-01] MEDS: Insulin GLARGINE(*) 1 UNITS UNIT SUBCUT SCH (21:22)
[2016-09-02] MEDS: Piperac/Tazob 3.375 gm in NS* 3.375 GM/100 ML BAG IVPB SCH ×2 (02:39→09:48)
[2016-09-02] MEDS: Morphine INJ* 2 MG/ML 1 ML SYRINGE IV PRN ×3 (02:42→22:10)
[2016-09-02 06:57] LABS: BUN/Creatinine Ratio 13.1 (8-20); EGFR African American 136.4 (>60); EGFR Non-African American 106.1 (>60); Potassium 3.5 mmol/L (3.5-5.0)
[2016-09-02] MEDS: Insulin LISPRO* 1 UNITS UNIT SUBCUT SCH ×3 (08:50→18:03)
[2016-09-02] MEDS: metFORMIN* 1,000 MG TAB PO SCH ×2 (09:36→16:44)
--- NOTE | 2016-09-02 09:53 | PN ---
Subjective Date of Service: 09/02/16 Interval History: Patient seen this morning. Said she had a difficult night as pain medications wore off when she was asleep. Has been eating a bit more but says it is difficult as it is painful to sit up. Ordered Metformin to restart but patient would like to bring her extended release from home to minimize GI upset. Patient says she is not sure she has anyone at home to help with her wound dressings. Family History: Unchanged from Admission Social History: Unchanged from Admission Past Medical History: Unchanged from Admission Objective Active Medications: Dextrose (D50w Syringe 50 Ml*) 12.5 gm IV PUSH .FOR FS < 60 - SS PRN Enoxaparin Sodium (Lovenox(*)) 40 mg SUBCUT Q24H ENMANUEL Sodium Chloride (Ns 0.9% 1000 Ml*) 1,000 mls @ 125 mls/hr IV PER RATE ENMANUEL Piperacillin Sod/Tazobactam Sod (Zosyn 3.375 Gm In Ns Premix*) 3.375 gm in 100 mls @ 25 mls/hr IVPB Q8H ENMANUEL Insulin Glargine (Lantus(*)) 45 units SUBCUT Q24H ENMANUEL Insulin Human Lispro (Humalog*) 0 - 15 units SUBCUT AC ENMANUEL Lisinopril (Prinivil Tab*) 20 mg PO 2000 ENMANUEL Metformin HCl (Glucophage*) 1,000 mg PO 0800,1700 ENMANUEL Morphine Sulfate (Morphine Inj (Syringe)*) 2 mg IV Q4H PRN Ondansetron HCl (Zofran Inj*) 4 mg IV Q4H PRN Oxycodone/Acetaminophen (Percocet 5/325 Tab*) 1 tab PO Q4H PRN Vital Signs 09/01/16 09/01/16 09/01/16 12:09 13:09 15:48 Temperature 98.3 F Pulse Rate 98 Respiratory 20 18 Rate Blood Pressure 133/79 (mmHg) O2 Sat by Pulse 98 Oximetry 09/01/16 09/01/16 09/01/16 17:32 19:22 19:32 Temperature Pulse Rate 95 Respiratory 18 18 Rate Blood Pressure 114/66 (mmHg) O2 Sat by Pulse 100 Oximetry 09/02/16 09:12 Temperature Pulse Rate Respiratory 16 Rate Blood Pressure (mmHg) O2 Sat by Pulse Oximetry Oxygen Devices in Use Now: None Appearance: Middle-aged, AAF, laying in bed in NAD Eyes: No Scleral Icterus Ears/Nose/Mouth/Throat: Mucous Membranes Moist Neck: NL Appearance and Movements; NL JVP Respiratory: Symmetrical Chest Expansion and Respiratory Effort, Clear to Auscultation Cardiovascular: NL Sounds; No Murmurs; No JVD, RRR Abdominal: NL Sounds; No Tenderness; No Distention Lymphatic: No Cervical Adenopathy Extremities: No Edema Skin: - - Will assess buttocks abscess with surgery Neurological: Alert and Oriented x 3 Result Diagrams: 09/01/16 05:12 09/02/16 06:12 Additional Lab and Data: Assess/Plan/Problems-Billing Assessment: Buttocks abscess, mild DKA in a 46 yo F with hx of HTN, DM, depression, anxiety , ADHD and recurrent abscesses - Patient Problems (1) Abscess of buttock, right Current Visit: Yes Comment: Apprecaite surgery assistance, s/p I&D on 08/31. MSSA growing on Cx, will change to IV Ancef. Stop IVF. Will need to determine frequency of dressing changes and ?need for home care. (2) DKA (diabetic ketoacidoses) Current Visit: Yes Comment: Lantus was increased to 45 last night, fasting BGs still high, will increase to 60 units qhs. Continue HISS. Patient declining formualry Metformin at this time, will have family bring her extended release Metformin from home. HbA1c is 14.7%, needs to be compliant with outpatient treatment. (3) HTN (hypertension) Current Visit: Yes Comment: Continue home Lisinopril (4) Depression Current Visit: Yes Comment: Patient does not want to start Fluoxetine again. (5) DVT prophylaxis Current Visit: Yes Comment: Lovenox SQ Status and Disposition: Pending wound needs
[2016-09-02] MEDS: ceFAZolin 1 GM in Dextrose (*) 1 GM/50 ML BAG IVPB SCH ×2 (10:50→18:04)
[2016-09-02] MEDS ORDERED: HYDROmorphone* 1 MG/ML 1 ML SYR IV SLOW PU ONE (11:23)
[2016-09-02] MEDS ORDERED: HYDROmorphone* 1 MG/ML 1 ML SYR ONE (11:29)
--- NOTE | 2016-09-02 11:58 | PN ---
Progress Note - Progress Note SOAP: Subjective: Reports doing better overall, no new complaints. Minimal pain from I&D site on R buttock. Denies fever or chills. Objective: Awake and alert, in NAD VSS, afebrile R buttock with decreased induration noted, mildly tender. Packing changed today. Minimal serous discharge. Assessment: Improving R buttock abscess, s/p I&D Plan: Continue Abx. Patient likely ready for d/c will d/w Dr. Hilton if she needs to F/U with wound clinic.
[2016-09-02] MEDS: oxyCODONE/Acetamin 5/325 MG* TAB PO PRN (17:05)
[2016-09-02] MEDS: Enoxaparin(*) 40 MG/0.4 ML SYR SUBCUT SCH (21:05)
[2016-09-02] MEDS: Insulin GLARGINE(*) 1 UNITS UNIT SUBCUT SCH (21:06)
[2016-09-02] MEDS: Lisinopril TAB* 10 MG PO SCH (21:07)
[2016-09-03] MEDS: ceFAZolin 1 GM in Dextrose (*) 1 GM/50 ML BAG IVPB SCH ×3 (02:10→18:03)
[2016-09-03] MEDS: oxyCODONE/Acetamin 5/325 MG* TAB PO PRN ×2 (02:16→12:35)
[2016-09-03] MEDS: Morphine INJ* 2 MG/ML 1 ML SYRINGE IV PRN ×2 (03:23→07:55)
[2016-09-03] MEDS: metFORMIN* 1,000 MG TAB PO SCH (08:11)
[2016-09-03] MEDS: Insulin LISPRO* 1 UNITS UNIT SUBCUT SCH ×3 (08:33→18:02)
--- NOTE | 2016-09-03 11:01 | PN ---
Subjective Date of Service: 09/03/16 Interval History: Patient seen this morning. Feels that pain is about the same, tearful. Began to report some labial pain and swelling yesterday evening which she feels is worse today, painful. No fever or chills. Appetite has been improving. Family History: Unchanged from Admission Social History: Unchanged from Admission Past Medical History: Unchanged from Admission Objective Active Medications: Dextrose (D50w Syringe 50 Ml*) 12.5 gm IV PUSH .FOR FS < 60 - SS PRN Enoxaparin Sodium (Lovenox(*)) 40 mg SUBCUT Q24H ENMANUEL Cefazolin Sodium/Dextrose (Kefzol 1 Gm In Dextrose Duplex (*)) 1 gm in 50 mls @ 200 mls/hr IVPB Q8H ENMANUEL Insulin Glargine (Lantus(*)) 60 units SUBCUT Q24H ENMANUEL Insulin Human Lispro (Humalog*) 0 - 15 units SUBCUT AC ENMANUEL Lisinopril (Prinivil Tab*) 20 mg PO 2000 ENMANUEL Metformin HCl (Glucophage*) 1,000 mg PO 0800,1700 ENMANUEL Morphine Sulfate (Morphine Inj (Syringe)*) 2 mg IV Q4H PRN Ondansetron HCl (Zofran Inj*) 4 mg IV Q4H PRN Oxycodone/Acetaminophen (Percocet 5/325 Tab*) 1 tab PO Q4H PRN Vital Signs 09/02/16 09/02/16 09/02/16 11:31 12:31 15:19 Temperature 97.8 F Pulse Rate 93 Respiratory 16 16 16 Rate Blood Pressure 152/81 (mmHg) O2 Sat by Pulse 97 Oximetry 09/02/16 09/02/16 09/02/16 22:10 23:10 23:19 Temperature 98.3 F Pulse Rate 89 Respiratory 16 16 16 Rate Blood Pressure 146/83 (mmHg) O2 Sat by Pulse 95 Oximetry 09/03/16 09/03/16 09/03/16 02:16 03:10 03:23 Temperature 98.0 F Pulse Rate 89 Respiratory 16 16 20 Rate Blood Pressure 161/91 (mmHg) O2 Sat by Pulse 98 Oximetry 09/03/16 09/03/16 09/03/16 04:16 04:23 07:19 Temperature 97.5 F Pulse Rate 82 Respiratory 20 18 16 Rate Blood Pressure 139/85 (mmHg) O2 Sat by Pulse 97 Oximetry Oxygen Devices in Use Now: None Appearance: Middle-aged, AAF, laying in bed in mild distress Eyes: No Scleral Icterus Ears/Nose/Mouth/Throat: Mucous Membranes Moist Neck: NL Appearance and Movements; NL JVP Respiratory: Symmetrical Chest Expansion and Respiratory Effort, Clear to Auscultation Cardiovascular: NL Sounds; No Murmurs; No JVD, RRR Abdominal: NL Sounds; No Tenderness; No Distention Lymphatic: No Cervical Adenopathy Extremities: No Edema Skin: - - R buttocks abscess evaluated, still with some purulent drainage, small amout of packing ribbon exposed, abd pad in place. L inferior vulvar swelling, seems deep to the labia, tender, difficult to appreciate fluctuance Neurological: Alert and Oriented x 3 Result Diagrams: 09/01/16 05:12 09/02/16 06:12 Additional Lab and Data: Assess/Plan/Problems-Billing Assessment: Buttocks abscess, mild DKA in a 46 yo F with hx of HTN, DM, depression, anxiety , ADHD and recurrent abscesses - Patient Problems (1) Abscess of buttock, right Current Visit: Yes Comment: Appreciate surgery assistance, s/p I&D on 08/31. MSSA growing on Cx also Actinomyces. Spoke briefly with ID who recommended switching to Augmentin on discharge and treat for 1 month as Actinomyces can linger and require extended therapy. Can continue for now with Ancef. (2) Vulvar abscess Current Visit: Yes Comment: Possible batholin gland abscess, have asked Dr. Lindo to evaluate the patient to see if he feels she needs I&D. (3) DKA (diabetic ketoacidoses) Current Visit: Yes Comment: Continue Lantus 60 units qhs and HISS. Patient brought home metformin, will send down to pharmacy. HbA1c is 14.7%, needs to be compliant with outpatient treatment. (4) HTN (hypertension) Current Visit: Yes Comment: Continue home Lisinopril (5) Depression Current Visit: Yes Comment: Patient does not want to start Fluoxetine again. (6) DVT prophylaxis Current Visit: Yes Comment: Lovenox SQ
[2016-09-03] MEDS: METFORMIN 500 MG PO SCH (13:29)
[2016-09-03] MEDS ORDERED: Morphine INJ* 10 MG/ML 1 ML SYRINGE IV ONE (15:05)
[2016-09-03] MEDS: Ibuprofen TAB* 400 MG PO PRN ×2 (15:17→23:26)
--- NOTE | 2016-09-03 15:23 | PN ---
Progress Note - Progress Note Note: patient 46 yo seen for vulvar pain. She is being seen for abscess on the right perirectal area which was drained/c currently on antibiotics afebrile vulva indurated along the labia majora on left . no fluctuance , mild erythema no bartholins enlargement . no fluctuance. Assess- perirectal abscess with extension of infection into the vulva but no abscess plan- sitz or tubs baths if appropriate from surgical side continue antibiotics Gene Lindo MD
[2016-09-03] MEDS: Insulin GLARGINE(*) 1 UNITS UNIT SUBCUT SCH (20:28)
[2016-09-03] MEDS: Enoxaparin(*) 40 MG/0.4 ML SYR SUBCUT SCH (20:29)
[2016-09-03] MEDS: Lisinopril TAB* 10 MG PO SCH (20:31)
[2016-09-04] MEDS: ceFAZolin 1 GM in Dextrose (*) 1 GM/50 ML BAG IVPB SCH ×2 (01:42→11:02)
[2016-09-04] MEDS: Insulin LISPRO* 1 UNITS UNIT SUBCUT SCH ×3 (08:15→17:57)
[2016-09-04] MEDS: oxyCODONE/Acetamin 5/325 MG* TAB PO PRN ×2 (08:16→14:04)
[2016-09-04] MEDS: METFORMIN 500 MG PO SCH (09:08)
[2016-09-04 09:39] VITALS: BP 147/93
[2016-09-04] MEDS: Ibuprofen TAB* 400 MG PO PRN (12:46)
--- NOTE | 2016-09-04 12:54 | DCNOTE ---
"Subjective Date of Service: 09/04/16 Family History: Unchanged from Admission Social History: Unchanged from Admission Past Medical History: Unchanged from Admission Objective Active Medications: Cephalexin HCl (Keflex Cap*) 500 mg PO TID [facility] Dextrose (D50w Syringe 50 Ml*) 12.5 gm IV PUSH .FOR FS < 60 - SS PRN PRN Reason: FS < 60 Enoxaparin Sodium (Lovenox(*)) 40 mg SUBCUT Q24H [facility] Last Admin: 09/03/16 20:29 Dose: 40 mg Cefazolin Sodium/Dextrose (Kefzol 1 Gm In Dextrose Duplex (*)) 1 gm in 50 mls @ 200 mls/hr IVPB Q8H [facility] Last Admin: 09/04/16 11:02 Dose: 200 mls/hr Ibuprofen (Motrin Tab*) 400 mg PO Q6H PRN PRN Reason: PAIN Last Admin: 09/04/16 12:46 Dose: 400 mg Insulin Glargine (Lantus(*)) 60 units SUBCUT Q24H [facility] Last Admin: 09/03/16 20:28 Dose: 60 units Insulin Human Lispro (Humalog*) 0 - 15 units SUBCUT AC [facility] PRN Reason: Protocol Last Admin: 09/04/16 12:46 Dose: 2 units Lisinopril (Prinivil Tab*) 20 mg PO 1999 [facility] Last Admin: 09/03/16 20:31 Dose: 20 mg Metformin HCl (Metformin Er (Nf)) 1,000 mg PO DAILY [facility] Last Admin: 09/04/16 09:08 Dose: 500 mg Morphine Sulfate (Morphine Inj (Syringe)*) 2 mg IV Q4H PRN PRN Reason: PAIN Last Admin: 09/03/16 07:55 Dose: 2 mg Ondansetron HCl (Zofran Inj*) 4 mg IV Q4H PRN PRN Reason: NAUSEA/VOMITING Oxycodone/Acetaminophen (Percocet 5/325 Tab*) 1 tab PO Q4H PRN PRN Reason: Pain Last Admin: 09/04/16 08:16 Dose: 1 tab Vital Signs 09/03/16 09/03/16 09/03/16 14:35 15:48 16:11 Temperature 97.6 F Pulse Rate 90 Respiratory 16 16 17 Rate Blood Pressure 174/92 (mmHg) O2 Sat by Pulse 99 Oximetry 09/03/16 09/03/16 09/03/16 16:48 20:00 23:27 Temperature 97.8 F 98.3 F Pulse Rate 88 86 Respiratory 16 12 16 Rate Blood Pressure 126/69 145/90 (mmHg) O2 Sat by Pulse 99 98 Oximetry 09/04/16 09/04/16 09/04/16 03:17 07:38 08:00 Temperature 97.7 F 98.0 F Pulse Rate 84 89 Respiratory 16 18 14 Rate Blood Pressure 137/79 147/93 (mmHg) O2 Sat by Pulse 94 96 Oximetry 09/04/16 09/04/16 08:16 10:16 Temperature Pulse Rate Respiratory 14 14 Rate Blood Pressure (mmHg) O2 Sat by Pulse Oximetry Oxygen Devices in Use Now: None Appearance: Alert, supine in bed. In good spirits. Looks comfortable. Extremities: No Edema, No Clubbing, Cyanosis, - Skin: No Rash or Ulcers, No Nodules or Sclerosis, - Neurological: Alert and Oriented x 3, NL Sensation Result Diagrams: 09/01/16 05:12 09/02/16 06:12 Additional Lab and Data: Assess/Plan/Problems-Billing Assessment: Buttocks abscess, mild DKA in a 46 yo F with hx of HTN, DM, depression, anxiety , ADHD and recurrent abscesses - Patient Problems (1) Abscess of buttock, right Current Visit: Yes Status: Acute Code(s): L02.31 - CUTANEOUS ABSCESS OF BUTTOCK SNOMED Code(s): 65173135 Comment: Rx amox/clav 875 mg bid x [address] Franks to re-pack wound , next wound care 09/07 as per his instructions to pt. Rx oxycodone/APAP 5/ 325 1 q4 hr PRN # 20. (2) Vulvar abscess Current Visit: Yes Status: Acute Code(s): N76.4 - ABSCESS OF VULVA SNOMED Code(s): 38416109 Comment: Dr. Lindo's note appreciated. Continue with local heat. Pain control OK. Pt to fup with Dr. eYe if not improving over next few days. (3) Diabetes Current Visit: Yes Status: Acute Code(s): E11.9 - TYPE 2 DIABETES MELLITUS WITHOUT COMPLICATIONS SNOMED Code(s): 85783203 Comment: Note A1C 14.7 08/31/16. Pt states she neglected her DM at home recently. She couldn't explain why she didn't use short-acting insulin at home. She may seek resuming care with Dr. Heller. Fup Dr. Lopez. Resume her usual home DM regimen. (4) HTN (hypertension) Current Visit: Yes Status: Acute Code(s): I10 - ESSENTIAL (PRIMARY) HYPERTENSION SNOMED Code(s): 19884979 Comment: Continue home Lisinopril Status and Disposition: Discharge now. Search Terms: barby reina, 1970 Search Date: 09/04/2016 12:48:38 PM This report was requested by: Troy Gimenez | Reference #: [id number] Others' Prescriptions Patient Name: Barby Reina Date: 1970 Address: [address] [place] [address] Sex: Female Rx Written Rx Dispensed Drug Quantity Days Supply Prescriber Name 05/24/2016 05/24/2016 hydrocodone-acetaminophen 5-325 tablet 7 2 Madhuri Rodriguez A D O"
--- NOTE | 2016-09-04 13:54 | PN ---
Progress Note - Progress Note Note: Time spent on discharge 50 minutes.
[2016-09-04] MEDS ORDERED: Cephalexin CAP* 500 MG PO SCH (14:00)
[2016-09-04] MEDS: Insulin GLARGINE(*) 1 UNITS UNIT SUBCUT SCH (17:57)
[2016-09-04] MEDS: Enoxaparin(*) 40 MG/0.4 ML SYR SUBCUT SCH (18:01)
[2016-09-04] MEDS: Morphine INJ* 2 MG/ML 1 ML SYRINGE IV PRN (20:28)
[2016-09-04] MEDS: Lisinopril TAB* 10 MG PO SCH (20:32)
[2016-09-04] MEDS ORDERED: Amoxicillin/Clavulanate TAB* 875 MG PO SCH (21:00)
--- NOTE | 2016-09-05 03:38 | DS ---
CC: Tyler Lopez MD; Dr. Heller DISCHARGE SUMMARY: DATE OF ADMISSION: DATE OF DISCHARGE: 09/04/16 HOSPITAL COURSE: This 46-year-old woman presented with a perianal abscess. She noted some irritation a few days before. She has had drainage of the abscesses in the past. The rest of the history is detailed in the dictated admission note. Of note, the patient says that she had a difficult winter and was depressed and was not giving herself insulin properly. She also stopped checking her blood sugars regularly, though she checked the day before admission and it was 415. There was some nausea and decreased fluid intake. She was found to have diabetic ketoacidosis. As this was mild, she was treated with subcutaneous insulin. This resolved well. She was hydrated. She had I and D by Dr. Hilton on 08/31/16 of her perirectal abscess. There was some vulvar pain. Dr. Lindo saw her. He felt that the abscess may have extended into the vulva, but will be treated conservatively at this point. She is using hot packs. She was getting cefazolin in the hospital. Her wound grew out Staphylococcus sensitive to oxacillin as well as Actinomyces odontolyticus. Dr. Montes has recommend that she take amoxicillin clavulanate as an outpatient for one month and this was prescribed. The patient is on usual regimen for diabetes taking glargine insulin once a day and metformin, but no short acting insulin. She said she had been a patient of Dr. Heller in the past, but has not seen him for sometime. I told her if Dr. Heller would agree to see her that that would be a good idea for her to return to his office for followup care as well as to continue with Dr. Lopez for all her general medical problems. FINAL DIAGNOSES: 1. Perirectal abscess. 2. Probable vulvar abscess or phlegmon. 3. Mild diabetic ketoacidosis, improved. 4. Depression. DISCHARGE MEDICATIONS: 1. Oxycodone/acetaminophen 5/325 one every 4 hours p.r.n. 2. Amoxicillin clavulanate 875 mg b.i.d. 3. Metformin 2000 mg daily as prescribed. 4. Glargine insulin 45 to 60 units at bedtime by sliding scale. 5. Lisinopril 20 mg daily. 6. Fluoxetine 40 mg daily. 7. Multivitamin one daily. 8. Methylphenidate 27 mg daily. [id number]/[facility] #: [id number] [facility]
== END 2016-09-04 21:00 | disposition home or self-care (01) | DRG 356 ==
LOC: ED 12:54 → MED 17:49 → OBSVTOIN 09-01 10:38
PROVIDERS: ADMIT Hospitalist; ATTEND Internal Medicine
PROC: 0JB90ZZ Excision of Buttock Subcutaneous Tissue and Fascia, Open Approach (ICD-10-PCS; principal; 2016-08-31)
PROC: 0J990ZZ Drainage of Buttock Subcutaneous Tissue and Fascia, Open Approach (ICD-10-PCS; 2016-08-31)
DX: K61.1 Rectal abscess (principal); E13.10 Other specified diabetes mellitus with ketoacidosis without coma; N76.4 Abscess of vulva; B95.7 Other staphylococcus as the cause of diseases classified elsewhere; I10 Essential (primary) hypertension; F32.9 Major depressive disorder, single episode, unspecified; F90.9 Attention-deficit hyperactivity disorder, unspecified type; F41.9 Anxiety disorder, unspecified; Z79.84 Long term (current) use of oral hypoglycemic drugs; Z79.4 Long term (current) use of insulin; Z79.899 Other long term (current) drug therapy; Z91.128 Patient's intentional underdosing of medication regimen for other reason; Z88.6 Allergy status to analgesic agent; Z82.49 Family history of ischemic heart disease and other diseases of the circulatory system; Z83.3 Family history of diabetes mellitus
CPT/HCPCS: 36415; 72193; 80048; 80053; 82803; 83036; 83605; 85025; 86140; 87040; 87070; 87077; 87186; 87205; 87640; 87641; 96372; 99212; A9270-GY; G0378; G0463; J0690; J0744; J1170; J1650; J1885; J2270; J2405; J2543; Q9967

== ENCOUNTER 2017-08-03 09:24 | Day surgery (SDC) | payer MEDICARE, MEDICAID ==
[~2017-08-03 09:24] MED LIST: Acetaminophen TAB* 325 MG PO PRN; Buffered Lidocaine 0.9% SYRIN* 5 ML/SYR SYRINGE INTRADERM ONE
[2017-08-03] MEDS ORDERED: Midazolam* 1 MG/ML 5 ML VIAL (5 MG) ONE (10:31)
[2017-08-03] MEDS ORDERED: fentaNYL* 50 MCG/ML 2 ML VIAL (100 MCG VIAL) ONE (10:31)
[2017-08-03 12:20] VITALS: BP 95/54
[2017-08-03] MEDS ORDERED: Neomycin/Polymy/Dex OPHTH.OIN* 3.5 GM ONE (13:56)
[2017-08-03] MEDS ORDERED: Phenylephrine 2.5% OPTH.SOL* 2 ML BTL ONE (13:56)
[2017-08-03] MEDS ORDERED: Lidocaine 1% MPF* 2 ML VIAL ONE (13:56)
[2017-08-03] MEDS ORDERED: Ketorolac 0.5% OPHTH (NF) 0.5 % 5 ML BTL ONE (13:56)
[2017-08-03] MEDS ORDERED: Cyclopentolate 1% OPTH.SOL* 2 ML BTL ONE (13:56)
[2017-08-03] MEDS ORDERED: Tetracaine 0.5% OPTH.SOL 4 ML* 1 DROP BTL ONE (13:56)
[2017-08-03] MEDS ORDERED: Tropicamide 1% OPTH.SOL* BTL ONE (13:56)
--- NOTE | 2017-08-03 16:38 | OP ---
DATE OF OPERATION/DATE OF OPERATION: 08/03/2017 - [facility] DATE OF : 1970. SURGEON: Dr. Yung Daniels. FIELD EDUCATION DIRECTOR: None. ANESTHESIA: Topical with intravenous sedation. PRE-OP DIAGNOSIS: Cataract, left eye. POST-OP DIAGNOSIS: Cataract, left eye. OPERATIVE PROCEDURE: Phacoemulsification and cataract extraction with posterior chamber intraocular lens implant, left eye. COMPLICATIONS: None. BLOOD LOSS: None. DESCRIPTION OF PROCEDURE: The patient was brought to the operating room and received a small amount of intravenous sedation. A drop of Tetracaine was placed in her left eye. She was prepped and draped in the usual sterile fashion for ophthalmic surgery and attention was directed to the left eye where a speculum was placed. A paracentesis was created at the 5 o'clock position and 0.1 cc of 1 percent preservative-free Lidocaine was injected into the anterior chamber followed by DisCoVisc. The eye was digitally stabilized while a 2.75 mm keratome was used to create a triplanar clear corneal incision at the 3 o'clock position. A continuous curvilinear capsulorrhexis was created with a cystotome and Utrata forceps. BSS on a cannula was used to hydrodissect the lens from the capsule. Phacoemulsification was performed in a divide-and- conquer technique to create four fragments which were removed. Residual cortical material was removed with irrigation and aspiration. DisCoVisc was used to inflate the capsular bag and an AUOOTO 13.5 diopter lens was folded and inserted into the capsular bag. DisCoVisc was removed using irrigation and aspiration. BSS on a cannula was used to hydrate the corneal stroma and seal the wound. At the end of the case the pupil was round and the lens was centered. The eye was of normal pressure and the wound was water tight. The speculum was removed and topical Maxitrol ointment was placed on the surface of the eye. The eye was closed, patched and shielded and the patient was sent to the recovery room in stable condition with post operative instructions and follow-up appointment given. [id number]/[facility] #: [id number] MTDD
== END 2017-08-03 12:34 | disposition home or self-care (01) ==
LOC: OREAST 09:24
PROVIDERS: ATTEND Ophthalmology
DX: H25.12 Age-related nuclear cataract, left eye (principal); E11.9 Type 2 diabetes mellitus without complications; Z79.4 Long term (current) use of insulin; Z79.84 Long term (current) use of oral hypoglycemic drugs
CPT/HCPCS: 81025; A9270-GY; J2250; J3010; V2632

== ENCOUNTER 2017-08-10 11:47 | Day surgery (SDC) | payer MEDICARE, MEDICAID ==
[~2017-08-10 11:47] MED LIST changes: -Acetaminophen TAB* 325 MG PO PRN; +Cyclopentolate 1% OPTH.SOL* 2 ML BTL ONE; +Ketorolac 0.5% OPHTH (NF) 0.5 % 5 ML BTL ONE; +Lidocaine 1% MPF* 2 ML VIAL ONE; +Neomycin/Polymy/Dex OPHTH.OIN* 3.5 GM ONE; +Phenylephrine 2.5% OPTH.SOL* 2 ML BTL ONE; +Tetracaine 0.5% OPTH.SOL 4 ML* 1 DROP BTL ONE; +Tropicamide 1% OPTH.SOL* BTL ONE
[2017-08-10] MEDS ORDERED: Lidocaine 2% PF * 5 ML VIAL ONE (13:33)
[2017-08-10] MEDS ORDERED: Propofol* 10 MG/ML 20 ML BTL IV PUSH ONE (13:33)
[2017-08-10 14:02] VITALS: BP 133/91
--- NOTE | 2017-08-10 14:05 | OP ---
DATE OF OPERATION/DATE OF DICTATION: 08/10/2017 - [facility] DATE OF : 1970. SURGEON: Dr. Yung Daniels. CUSTOMER ASSISTANCE REPRESENTATIVE: None. ANESTHESIA: Topical with intravenous sedation. PRE-OP DIAGNOSIS: Cataract, right eye. POST-OP DIAGNOSIS: Cataract, right eye. OPERATIVE PROCEDURE: Phacoemulsification and cataract extraction with posterior chamber intraocular lens implant, right eye. COMPLICATIONS: None. BLOOD LOSS: None. DESCRIPTION OF PROCEDURE: The patient was brought to the operating room and received a small amount of intra-venous sedation. A drop of Tetracaine was placed in her right eye. She was prepped and draped in the usual sterile fashion for ophthalmic surgery and attention was directed to the right eye where a speculum was placed. A paracentesis was created at the 11 o'clock position and 0.1 cc of 1 percent preservative-free Lidocaine was injected into the anterior chamber followed by DisCoVisc. The eye was digitally stabilized while a 2.75 mm keratome was used to create a triplanar clear corneal incision at the 9 o'clock position. A continuous curvilinear capsulorrhexis was created with a cystotome and Utrata forceps. BSS on a cannula was used to hydrodissect the lens from the capsule. Phacoemulsification was performed in a divide-and- conquer technique to create four fragments which were removed. Residual cortical material was removed with irrigation and aspiration. DisCoVisc was used to inflate the capsular bag and an AUOOTO 13.5 diopter lens was folded and inserted into the capsular bag. DisCoVisc was removed using irrigation and aspiration. BSS on a cannula was used to hydrate the corneal stroma and seal the wound. At the end of the case the pupil was round and the lens was centered. The eye was of normal pressure and the wound was water tight. The speculum was removed and topical Maxitrol ointment was placed on the surface of the eye. The eye was closed, patched and shielded and the patient was sent to the recovery room in stable condition with post operative instructions and follow-up appointment given. [id number]/[facility] #: [id number] MTDD
== END 2017-08-10 14:12 | disposition home or self-care (01) ==
LOC: OREAST 11:47
PROVIDERS: ATTEND Ophthalmology
DX: H25.11 Age-related nuclear cataract, right eye (principal); E11.9 Type 2 diabetes mellitus without complications; Z79.4 Long term (current) use of insulin; Z79.84 Long term (current) use of oral hypoglycemic drugs; I10 Essential (primary) hypertension
CPT/HCPCS: A9270-GY; J2704; V2632